=== PATIENT | female | born 1985 | race Caucasian/White ===

== ENCOUNTER 2017-04-11 09:04 | Emergency (ER) | payer MEDICAID, SELFPAY ==
[2017-04-11] MEDS ORDERED: Ketorolac Tromethamine 60 MG/2 ML VIAL ONE (09:21)
== END 2017-04-11 09:26 | disposition home or self-care (01) ==
LOC: BURERS 09:04
DX: M54.5 Low back pain (principal); F17.210 Nicotine dependence, cigarettes, uncomplicated; W10.9XXA Fall (on) (from) unspecified stairs and steps, initial encounter
CPT/HCPCS: 96372; J1885

== ENCOUNTER 2017-09-18 09:45 | Emergency (ER) | payer SELFPAY ==
[2017-09-18 10:21] LABS: #Basophils 0.1 thou/uL (0.0-0.2); #Eosinphils 0.1 thou/uL (0.0-0.7); #Lymphocytes 2.7 thou/uL (1.20-3.40); #Monocytes 0.7 thou/uL (0.11-0.59); #Neutrophils 6.9 thou/uL (1.40-6.50); %Basophils 0.9 % (0.0-1.0); %Eosinophils 1.2 % (0.0-10.0); %Lymphocytes 25.6 % (21.0-51.0); %Monocytes 6.5 % (0.0-10.0); %Neutrophils 65.9 % (42.0-75.0); Hemoglobin 14.4 g/dL (12.0-16.0); Mean Corpuscular HGB CONC 33.4 g/dL (32.0-36.0); Mean Corpuscular Hemoglobin 29.9 pg (27.0-31.0); Mean Corpuscular Volume 89.6 fl (81.0-99.0); Mean Platelet Volume 6.9 fL (7.4-10.4); Platelet Count 328 thou/uL (130-400); RBC Distribution Width 11.6 % (11.5-14.5); Red Blood Cell (RBC) Count 4.82 mill/uL (4.20-5.40); White Blood Cell (WBC) Count 10.4 thou/uL (4.8-10.8)
[2017-09-18 10:29] LABS: PTT 32.5 SEC (22.9-36.1); Prothrombin Time 13.5 SEC (12.0-14.7)
[2017-09-18 10:34] LABS: BHCG - Serum Negative (NEGATIVE); Pregs Control Background? CLEAR/WHITE (CLR/WHITE); Pregs Control Bar Appear? YES (CONTROL BAR)
[2017-09-18 10:38] LABS: ALT (SGPT) 8 U/L (8-55); AST (SGOT) 10 U/L (5-34); Albumin 4.2 g/dL (3.5-5.0); Alkaline Phosphatase 60 U/L (40-150); Anion Gap 13 mmol/L (10-20); BUN (Urea Nitrogen) 14 mg/dL (7.0-18.7); Bilirubin, Total 0.3 mg/dL (0.2-1.2); Calc. Creatinine Clearance 0 mL/min (70-130); Calcium 9.7 mg/dL (7.8-10.44); Carbon Dioxide 27 mmol/L (22-29); Chloride 106 mmol/L (98-107); Estimated GFR-MDRD 86; Globulin 2.8 g/dL (2.4-3.5); Glucose 86 mg/dL (70-105); Potassium 3.8 mmol/L (3.5-5.1); Sodium 142 mmol/L (136-145)
[2017-09-18 10:40] LABS: CKMB 0.4 ng/mL (0-6.6); Troponin I Less than 0.010 ng/mL (< 0.028)
[2017-09-18 11:06] LABS: Bilirubin Negative (Negative); Blood, Urine Negative (Negative); Clarity Clear (Clear); Glucose, Urine (Dipstick) Negative (Negative); Leukocyte Negative (Negative); Nitrite Negative (Negative); Protein, Urine (Dipstick) Negative (Neg-Trace); Urobilinogen 0.2 mg/dL (0.2-1.0); pH, Urine 5.5 (5.0-9.0)
[2017-09-18 11:08] LABS: Specific Gravity, Urine 1.006 (1.005-1.030)
--- NOTE | 2017-09-18 19:25 | RAD ---
CHEST TWO VIEWS: 09/18/17 Comparison is made with a 06/30/11 study from [facility]. There is minor curvature to the spine that is probably of limited significance. The lungs are fully i nflated and clear. There is no sign of pneumonia. No infiltrate or effusion was present. The heart is normal in size. the mediastinum appears normal. IMPRESSION: No acute thoracic findings. POS: HOME
== END 2017-09-18 12:13 | disposition home or self-care (01) ==
LOC: BURERS 09:45
DX: R55 Syncope and collapse (principal); F17.210 Nicotine dependence, cigarettes, uncomplicated
CPT/HCPCS: 71046; 80053; 81003; 82553; 83880; 84443; 84484; 84703; 85025; 85610; 85730; 93005; 96360

== ENCOUNTER 2022-12-13 12:03 | Emergency (ER) | payer SELFPAY ==
[2022-12-13 12:43] LABS: Bilirubin Negative (Negative); Blood, Urine Small (Negative); Clarity Clear (Clear); Glucose, Urine (Dipstick) Negative (Negative); Ketone, Urine Negative (Negative); Leukocyte Negative (Negative); Nitrite Negative (Negative); Protein, Urine (Dipstick) Negative (Neg-Trace); Urobilinogen 0.2 mg/dL (Less than 2); pH, Urine 6.5 (5.0-9.0)
[2022-12-13 12:58] LABS: CAUTI Indications for Culture Acute Hematuria; RBC/HPF 0-3 HPF (0-3); Squamous Epithelial 0-3 HPF (0-3); WBC/HPF None Seen HPF (0-3)
[2022-12-13 12:59] LABS: Bacteria/HPF None Seen HPF (None Seen); Urine Culture Reflex No No
== END 2022-12-13 13:13 | disposition home or self-care (01) ==
LOC: BURERS 12:03
DX: R30.0 Dysuria (principal); F17.210 Nicotine dependence, cigarettes, uncomplicated
CPT/HCPCS: 81001; 99283

== ENCOUNTER 2024-04-19 12:29 | Emergency (ER) | payer OTHER ==
[2024-04-19 12:50] LABS: Bilirubin Negative (Negative); Blood, Urine Trace (Negative); Glucose, Urine (Dipstick) 100 mg/dL (Negative); Ketone, Urine Trace mg/dL (Negative); Leukocyte Negative (Negative); Nitrite Positive (Negative); Protein, Urine (Dipstick) 30 mg/dL (Neg-Trace)
[2024-04-19 12:52] LABS: Clarity Hazy (Clear); Pregnancy Test - Urine (BHCG) Negative (Negative); Pregu Control Background? CLEAR/WHITE (CLR/WHITE); Pregu Control Bar Appear? YES (CONTROL BAR)
[2024-04-19 12:58] LABS: CAUTI Indications for Culture Dysuria,urgency,freq; WBC/HPF 0-3 HPF (0-3)
[2024-04-19 12:59] LABS: Bacteria/HPF 4+ HPF (None Seen)
[2024-04-19 13:01] LABS: Yeast-Budding 1+ HPF (None Seen)
[2024-04-19 13:04] LABS: Urine Culture Reflex No No
[2024-04-19] MEDS ORDERED: Sulfameth/Trimethoprim DS 800-160mg TAB ONE (13:11)
== END 2024-04-19 13:16 | disposition home or self-care (01) ==
LOC: BURERS 12:29
DX: N39.0 Urinary tract infection, site not specified (principal); F17.210 Nicotine dependence, cigarettes, uncomplicated
CPT/HCPCS: 81001; 81025; 87086; 99283

== ENCOUNTER 2024-04-26 16:12 | Emergency (ER) | payer OTHER | END 2024-04-26 16:41 | disposition home or self-care (01) | LOC: BURERS 16:12 | DX: N89.9 Noninflammatory disorder of vagina, unspecified (principal); Z87.891 Personal history of nicotine dependence | CPT/HCPCS: 99283 ==